=== PATIENT | female | born 2000 | race Caucasian/White ===

== ENCOUNTER 2020-03-02 10:21 | Emergency (ER) | payer OTHER ==
[~2020-03-02] VITALS: Ht 157.5 cm; Wt 49.0 kg
[2020-03-02] MEDS ORDERED: PREDNISONE 20 M20 M1 PO (12:19)
[2020-03-02] MEDS ORDERED: ZPAK PO (12:19)
[2020-03-02 12:28] VITALS: BP 116/72
== END 2020-03-02 12:29 | disposition home or self-care (01) ==
LOC: M.ERS 10:21
DX: U07.1 COVID-19 (principal)